=== PATIENT | female | born 1995 | race Caucasian/White ===

== ENCOUNTER 2023-08-13 10:54 | Emergency (ER) | payer BC ==
[~2023-08-13] VITALS: Ht 165.1 cm; Wt 131.5 kg
[2023-08-13 11:00] VITALS: BP 118/87; PULSE 100; RESP 20; TEMP 98.1; O2SAT 100
[2023-08-13] MEDS: KETOROLAC 30 MG/ML VIAL IM ONE (12:37)
[2023-08-13] MEDS ORDERED: AMOX-1230 PO (13:48)
[2023-08-13] MEDS ORDERED: ACET-8905 PO (13:48)
== END 2023-08-13 13:56 | disposition home or self-care (01) ==
LOC: MED 10:54
DX: H60.93 Unspecified otitis externa, bilateral (principal); H61.23 Impacted cerumen, bilateral
CPT/HCPCS: 96372; 99283; J1885